=== PATIENT | male | born 1940 | race African-American/Black ===

== ENCOUNTER 2016-12-28 17:42 | Emergency (ER) | payer OTHER ==
[~2016-12-28 17:42] MED LIST: ALPRTAB4 PO; AMLO10TA2 PO; HYDR-3288 PO; HYDR-3583 PO; LABE200T2 PO; METO1TAB43 PO; WALKER/ADULT/FO1 MIS; WHEEMIS3
[2016-12-28 18:51] VITALS: BP 166/76; PULSE 60; RESP 16; TEMP 99; O2SAT 99
--- NOTE | 2016-12-28 18:52 | PD ---
HPI Chief Complaint: Complaint Time Seen by Provider: 18:32 Travel History International Travel<30 days: No Contact w/Intl Traveler<30days: No Traveled to known affect area: No History of Present Illness HPI 49 yo M c/o dysuria, urinary hesitancy, and dribbling gradually increasing over the last few days. pt has hx hesitancy however since R tibia surgery it has been worsening. he reports pain medication has led to constipation. no fever. no back pain/flank pain. no vomiting. no hematuria. no pain at glans or discharge. PFSH Past Medical History Arthritis: Yes Asthma: No Blood Disorders: No Anxiety: Yes Heart Rhythm Problems: No Cancer: No Cardiac Catheterization: Yes Cardiovascular Problems: Yes High Cholesterol: Yes Chemotherapy: No Chest Pain: Yes Congestive Heart Failure: No COPD: No Cerebrovascular Accident: No Diabetes: No Diminished Hearing: Yes Endocrine: Yes Genitourinary: No Headaches: Yes (PT. STATES WHEN BLOOD PRESSURE IS HIGH) Hiatal Hernia: No Hypertension: Yes Immune Disorder: No Kidney Stones: No Musculoskeletal: Yes (RIGHT ANKLE, RIGHT HIP) Neurologic: Yes Psychiatric: No Reproductive: No Respiratory: Yes (HISTORY OF COLLAPSED LUNG MANY YEARS AGO.) Migraines: No Myocardial Infarction: No Radiation Therapy: No Renal Failure: No Seizures: No Sleep Apnea: No Thyroid Disease: No Past Surgical History Abdominal Surgery: No AICD: No Cardiac Surgery: No Ear Surgery: No Endocrine Surgery: No Eye Surgery: No Genitourinary Surgery: No Gynecologic Surgery: No Insulin Pump: No Joint Replacement: Yes (RT. KNEE) Oral Surgery: No Pacemaker: No Thoracic Surgery: Yes (PNEUMOTHORAX WITH CHEST TUBE INSERTION IN 1969) Tonsillectomy: Yes Other Surgery: Yes (PNEUMONTHORAX IN THE 70'S) Social History Alcohol Use: No Tobacco Use: No (quit 25 years ago) Substance Use: No Allergies-Medications (Allergen,Severity, Reaction): Coded Allergies: No Known Allergies (Verified , 12/19/16) Reported Meds & Prescriptions Reported Meds & Active Scripts Active Wheelchair Elevated Leg (Device) 1 Mis Mis Ea .ROUTE DIRECTED Walker/Adult/Folding (Device) 1 Mis Mis Ea .ROUTE DIRECTED [place] (Hydrocodone-Acetaminophen) 7.5-325 mg Tab 1 Tab PO Q4H PRN Reported Metoprolol Succinate ER 24 HR (Metoprolol Succinate) 100 Mg Tab 100 Mg PO DAILY Labetalol (Labetalol HCl) 200 Mg Tab 200 Mg PO BID Hydrocodone-Acetaminophen 10-325 mg Tab 1 Tab PO QID Amlodipine (Amlodipine Besylate) 10 Mg Tab 10 Mg PO DAILY Alprazolam Xr (Alprazolam) 0.5 Mg Tab PO DAILY Review of Systems Except as stated in HPI: all other systems reviewed are Neg General / Constitutional: No: Fever Genitourinary: Positive: Frequency, Hesitancy, Dribbling, No: Hematuria, Incontinence Physical Exam Narrative GENERAL: 76 yo M, WNWD, NAD : Glans normal. No discharge. No testicular pain/mass/tenderness/crepitus. SKIN: Warm and dry. HEAD: Atraumatic. Normocephalic. EYES: Pupils equal and round. No scleral icterus. No injection or drainage. ENT: No nasal bleeding or discharge. Mucous membranes pink and moist. NECK: Trachea midline. No JVD. CARDIOVASCULAR: Regular rate and rhythm. RESPIRATORY: No accessory muscle use. Clear to auscultation. Breath sounds equal bilaterally. GASTROINTESTINAL: Abdomen soft, non-tender, nondistended. Hepatic and splenic margins not palpable. MUSCULOSKELETAL: Extremities without clubbing, cyanosis, or edema. No obvious deformities. NEUROLOGICAL: Awake and alert. No obvious cranial nerve deficits. Motor grossly within normal limits. Five out of 5 muscle strength in the arms and legs. Normal speech. PSYCHIATRIC: Appropriate mood and affect; insight and judgment normal. Data Data Last Documented VS Vital Signs Date Time Temp Pulse Resp B/P (MAP) Pulse Ox O2 Delivery O2 Flow Rate FiO2 12/28/16 18:51 99.0 60 16 166/76 (106) 99 Room Air Orders Orders Urinalysis - C+S If Indicated (12/28/16 18:47) Sodium Chloride 0.9% Flush (Ns Flush) (12/28/16 19:00) Urinary Catheter Insert/Apply (12/28/16 19:49) Ed Discharge Order (12/28/16 19:49) Labs Laboratory Tests Test 12/28/16 19:10 Urine Color LIGHT-YELLOW Urine Turbidity CLEAR Urine pH 7.5 Urine Specific [place] 1.011 Urine Protein NEG mg/dL Urine Glucose (UA) NEG mg/dL Urine Ketones NEG mg/dL Urine Occult Blood NEG Urine Nitrite NEG Urine Bilirubin NEG Urine Urobilinogen LESS THAN 2.0 MG/DL Urine Leukocyte Esterase NEG Urine RBC LESS THAN 1 /hpf Urine WBC LESS THAN 1 /hpf Urine Squamous Epithelial Cells <1 /hpf Microscopic Urinalysis Comment CULT NOT INDICATED MDM Medical Decision Making Medical Screen Exam Complete: Yes Emergency Medical Condition: Yes Medical Record Reviewed: Yes Differential Diagnosis urinary retention, BPH, side effects from opioid analgesia, UTI Narrative Course UA: no UTI pt likely has mild preexistant BPH and now with opioids has urinary retention. martinez placed and approx 500cc urine collected. martinez to leg bag. follow up with urology in 3 days. Diagnosis Primary Impression: Urinary retention Referrals: Hema Harris MD [address] HARRIS IS A UROLOGIST. PLEASE FOLLOW UP WITH HIM IN THREE DAYS TO HAVE THE MARTINEZ CATHETER REMOVED. Additional Instructions: You have a choice when it comes to health care, and we are glad that you chose [facility]. Hopefully, we have met your expectations on today's visit. You are welcome to return to [facility] at any time, as we are committed to meeting the health care needs of our community. Med/Other Pt SpecificInfo: No Change to Meds Disposition: 01 DISCHARGE HOME Condition: Kobi Díaz MD Dec 28, 2016 18:52
[2016-12-28] MEDS ORDERED: SODIUM CHLORIDE 0.9% FLUSH 10 ML FLUSH IVF PRN (19:00)
[2016-12-28 19:31] LABS: BLOOD, URINE NEG (NEG); GLUCOSE,URINE NEG (NEG); KETONE, URINE NEG (NEG); NITRITE,URINE NEG (NEG); PH, URINE 7.5 (5.0-8.5); SQUAMOUS EPITHELIAL CELL URINE <1 /hpf (0-5); URINE COLOR LIGHT-YELLOW (YELLW/STRAW)
[2016-12-28 19:47] LABS: COMMENT (UR) CULT NOT INDICATED; CULTURE IF INDICATED CULT NOT INDICATED
[2016-12-28] MEDS ORDERED: ACETAMINOPHEN/HYDROcodone 325 MG/10 MG TAB PO ONE (20:45)
[2016-12-28 20:50] VITALS: BP 189/86; PULSE 75; RESP 20
[2016-12-28 23:41] VITALS: BP 164/85; PULSE 72; RESP 20
[2016-12-29] MEDS ORDERED: ACETAMINOPHEN/HYDROcodone 325 MG/10 MG TAB PO ONE (02:15)
== END 2016-12-29 07:25 | disposition home or self-care (01) ==
LOC: NEPD 17:42
DX: R33.9 Retention of urine, unspecified (principal); M19.90 Unspecified osteoarthritis, unspecified site; I10 Essential (primary) hypertension; E78.00 Pure hypercholesterolemia, unspecified; F41.9 Anxiety disorder, unspecified; Z96.651 Presence of right artificial knee joint
CPT/HCPCS: 51702; 81001

== ENCOUNTER 2017-02-04 15:00 | Emergency (ER) | payer OTHER ==
[~2017-02-04 15:00] MED LIST changes: -ALPRTAB4 PO; -HYDR-3288 PO
[2017-02-04 15:13] VITALS: BP 180/82; PULSE 65; RESP 16; TEMP 98.9; O2SAT 100
--- NOTE | 2017-02-04 15:42 | PD ---
HPI Chief Complaint: Abnormal Results Time Seen by Provider: 15:21 Travel History International Travel<30 days: No Contact w/Intl Traveler<30days: No Traveled to known affect area: No History of Present Illness HPI 76 year old male patient presents to the emergency department for evaluation after his assisted living facility transferred him via EMS due to an abnormal abdominal x-ray. Patient had not had a bowel movement in 3 days and they took an x-ray and it showed partial ileus with constipation. Patient is post status right ankle fracture repair with external fixator. Patient is alert and answering questions appropriately. Per the senior living paperwork the patient has been having intermittent confusion lately. The patient states the reason why he is having intermittent confusion is related to the morphine he is taking for ankle pain postop. The patient denies any nausea, vomiting, abdominal pain. Patient denies any fever, chills, malaise. Patient denies any chest pain , shortness breath, lightheadedness. The patient states he is unable to have a bowel movement in the last was 3 days ago. PFSH Past Medical History Arthritis: Yes Asthma: No Blood Disorders: No Anxiety: Yes Heart Rhythm Problems: No Cancer: No Cardiac Catheterization: Yes Cardiovascular Problems: Yes High Cholesterol: Yes Chemotherapy: No Chest Pain: Yes Congestive Heart Failure: No COPD: No Cerebrovascular Accident: No Diabetes: No Diminished Hearing: Yes Endocrine: Yes Genitourinary: No Headaches: Yes (PT. STATES WHEN BLOOD PRESSURE IS HIGH) Hiatal Hernia: No Hypertension: Yes Immune Disorder: No Kidney Stones: No Musculoskeletal: Yes (RIGHT ANKLE, RIGHT HIP) Neurologic: Yes Psychiatric: No Reproductive: No Respiratory: Yes (HISTORY OF COLLAPSED LUNG MANY YEARS AGO.) Migraines: No Myocardial Infarction: No Radiation Therapy: No Renal Failure: No Seizures: No Sleep Apnea: No Thyroid Disease: No Past Surgical History Abdominal Surgery: No AICD: No Cardiac Surgery: No Ear Surgery: No Endocrine Surgery: No Eye Surgery: No Genitourinary Surgery: No Gynecologic Surgery: No Insulin Pump: No Joint Replacement: Yes (RT. KNEE) Oral Surgery: No Pacemaker: No Thoracic Surgery: Yes (PNEUMOTHORAX WITH CHEST TUBE INSERTION IN 1969) Tonsillectomy: Yes Other Surgery: Yes (PNEUMONTHORAX IN THE 70'S) Social History Alcohol Use: No Tobacco Use: No (quit 25 years ago) Substance Use: No Allergies-Medications (Allergen,Severity, Reaction): Coded Allergies: No Known Allergies (Verified , 12/19/16) Reported Meds & Prescriptions Reported Meds & Active Scripts Active Reported Multiple Vitamin 1 Tab 1 Tab PO DAILY Morphine ER (Morphine Sulfate) 15 Mg Tab 15 Mg PO Q8H Milk of Lucas Liq (Magnesium Hydroxide) 400 Mg/5 Ml Susp 30 Ml PO HS PRN Lotrisone Topical (Betamethasone/Clotrimazole) 1-0.05% Cream 1 Applic TOPICAL TID 10 Days Apply to rash on buttocks,thigh and groin Calcium Polycarbophil 625 Mg Tab 625 Mg PO BID Enema Disposable (Sodium Phosphates) 19 Gram-7 Gram/118 Ml Daily 1 Applic RECTAL DIRECTED PRN Dulcolax Supp (Bisacodyl) 10 Mg Supp 10 Mg RECTAL DAILY PRN Doxycycline (Doxycycline (Monohydrate)) 100 Mg Cap 100 Mg PO BID B12 (Cyanocobalamin) 1,000 Mcg Tab 1,000 Mcg PO DAILY Citroma Liq (Magnesium Citrate) 300 Ml Liq 296 Ml PO IN AM PRN Bactrim DS (Sulfamethoxazole-Trimethoprim) 800-160 Mg Tab 1 Tab PO BID UNTIL 02/13/2017 Tylenol (Acetaminophen) 325 Mg Tab 650 Mg PO Q4H PRN Metoprolol Succinate ER 24 HR (Metoprolol Succinate) 100 Mg Tab 100 Mg PO DAILY Labetalol (Labetalol HCl) 200 Mg Tab 200 Mg PO BID Hydrocodone-Acetaminophen 10-325 mg Tab 1 Tab PO Q6HR PRN Amlodipine (Amlodipine Besylate) 10 Mg Tab 10 Mg PO DAILY Review of Systems Except as stated in HPI: all other systems reviewed are Neg Physical Exam Narrative GENERAL: Well-nourished, well-developed 76-year-old male patient in no acute distress. Nontoxic appearing. SKIN: Focused skin assessment warm/dry. HEAD: Normocephalic. Atraumatic. EYES: No scleral icterus. No injection or drainage. NECK: Supple, trachea midline. No JVD or lymphadenopathy. CARDIOVASCULAR: Regular rate and rhythm without murmurs, gallops, or rubs. RESPIRATORY: Breath sounds equal bilaterally. No accessory muscle use. GASTROINTESTINAL: Abdomen firm, non-tender, nondistended. MUSCULOSKELETAL: No cyanosis, or edema. BACK: Nontender without obvious deformity. No CVA tenderness. Data Data Last Documented VS Vital Signs Date Time Temp Pulse Resp B/P (MAP) Pulse Ox O2 Delivery O2 Flow Rate FiO2 02/04/17 15:13 98.9 65 16 180/82 (114) 100 Orders Orders Magnesium Citrate Liq (Citroma Liq) (02/04/17 16:00) Complete Blood Count With Diff (02/04/17 15:53) Basic Metabolic Panel (Bmp) (02/04/17 15:53) Iv Access Insert/Monitor (02/04/17 15:53) Sodium Chlor 0.9% 1000 Ml Inj (Ns 1000 M (02/04/17 16:00) Labs Laboratory Tests Test 02/04/17 16:10 White Blood Count 6.3 TH/MM3 Red Blood Count 2.84 MIL/MM3 Hemoglobin 9.2 GM/DL Hematocrit 27.7 % Mean Corpuscular Volume 97.5 FL Mean Corpuscular Hemoglobin 32.5 PG Mean Corpuscular Hemoglobin Concent 33.3 % Red Cell Distribution Width 13.3 % Platelet Count 304 TH/MM3 Mean Platelet Volume 6.2 FL Neutrophils (%) (Auto) 53.9 % Lymphocytes (%) (Auto) 29.9 % Monocytes (%) (Auto) 7.6 % Eosinophils (%) (Auto) 7.9 % Basophils (%) (Auto) 0.7 % Neutrophils # (Auto) 3.4 TH/MM3 Lymphocytes # (Auto) 1.9 TH/MM3 Monocytes # (Auto) 0.5 TH/MM3 Eosinophils # (Auto) 0.5 TH/MM3 Basophils # (Auto) 0.0 TH/MM3 CBC Comment DIFF FINAL Differential Comment Blood Urea Nitrogen 21 MG/DL Creatinine 1.62 MG/DL Random Glucose 77 MG/DL Calcium Level 8.7 MG/DL Sodium Level 135 MEQ/L Potassium Level 4.5 MEQ/L Chloride Level 107 MEQ/L Carbon Dioxide Level 19.1 MEQ/L Anion Gap 9 MEQ/L Estimat Glomerular Filtration Rate 51 ML/MIN MDM Medical Decision Making Medical Screen Exam Complete: Yes Emergency Medical Condition: Yes Differential Diagnosis Differential diagnoses include but not limited to constipation, ileus, decreased motility secondary to narcotics, obstruction Narrative Course 76-year-old male patient presents emergency department after being sent by his retirement facility due to abnormal abdominal x-ray and intermittent confusion. Patient denies any nausea, vomiting, abdominal pain. Patient states he had a bowel movement 3 days ago. Patient alert and oriented and answering questions appropriately. Patient has PIV in place from retirement facility. Rectal exam performed at bedside and no hardened stool was noted to be in the rectal vault. CBC and CMP ordered and pending. A liter normal saline IV bolus ordered. Magnesium citrate 300 mL's ordered for constipation. CBC shows decrease HBG at 9.2. Patient asymptomatic. Patient will be given a prescription for miralax and discharged back to his retirement facility. Laboratory Tests Test 02/04/17 16:10 White Blood Count 6.3 TH/MM3 Red Blood Count 2.84 MIL/MM3 Hemoglobin 9.2 GM/DL Hematocrit 27.7 % Mean Corpuscular Volume 97.5 FL Mean Corpuscular Hemoglobin 32.5 PG Mean Corpuscular Hemoglobin Concent 33.3 % Red Cell Distribution Width 13.3 % Platelet Count 304 TH/MM3 Mean Platelet Volume 6.2 FL Neutrophils (%) (Auto) 53.9 % Lymphocytes (%) (Auto) 29.9 % Monocytes (%) (Auto) 7.6 % Eosinophils (%) (Auto) 7.9 % Basophils (%) (Auto) 0.7 % Neutrophils # (Auto) 3.4 TH/MM3 Lymphocytes # (Auto) 1.9 TH/MM3 Monocytes # (Auto) 0.5 TH/MM3 Eosinophils # (Auto) 0.5 TH/MM3 Basophils # (Auto) 0.0 TH/MM3 CBC Comment DIFF FINAL Differential Comment Blood Urea Nitrogen 21 MG/DL Creatinine 1.62 MG/DL Random Glucose 77 MG/DL Calcium Level 8.7 MG/DL Sodium Level 135 MEQ/L Potassium Level 4.5 MEQ/L Chloride Level 107 MEQ/L Carbon Dioxide Level 19.1 MEQ/L Anion Gap 9 MEQ/L Estimat Glomerular Filtration Rate 51 ML/MIN Diagnosis Primary Impression: Constipation Qualified Codes: K59.00 - Constipation, unspecified Referrals: Primary Care Physician Patient Instructions: Constipation (ED), General Instructions Additional Instructions: Please return to emergency department if your symptoms return or worsen. Follow up with your primary care provider. Take medications as prescribed. Stay hydrated, Med/Other Pt SpecificInfo: Prescription(s) given Scripts Polyethylene Glycol 3350 Powder (Miralax Powder) 17 Gm Powd 17 GM PO DAILY for Constipation, #1 CAN 0 Refills Mix and dissolve one measuring cap-ful (17 grams) in water or juice. Prov: Shayna Espino 02/04/17 Disposition: 01 DISCHARGE HOME Condition: Stable Shayna Espino Feb 04, 2017 15:42
[2017-02-04] MEDS ORDERED: SODIUM CHLOR 0.9% 1000 ML INJ 1,000 ML IV ONE (16:00)
[2017-02-04] MEDS ORDERED: MAGNESIUM CITRATE SOLN 300 ML BTL PO ONE (16:00)
[2017-02-04] MEDS ORDERED: MORP1TAB24 PO (16:05)
[2017-02-04] MEDS ORDERED: MILKSUS PO (16:05)
[2017-02-04] MEDS ORDERED: DOXY1CAP91 PO (16:05)
[2017-02-04] MEDS ORDERED: ENEMENE5 RECTAL (16:05)
[2017-02-04] MEDS ORDERED: LOTR15T TOPICAL (16:05)
[2017-02-04] MEDS ORDERED: CITRSOL4 PO (16:05)
[2017-02-04] MEDS ORDERED: BACT800T5 PO (16:05)
[2017-02-04] MEDS ORDERED: CYAN1TAB24 PO (16:05)
[2017-02-04] MEDS ORDERED: TYLE325T PO (16:05)
[2017-02-04] MEDS ORDERED: DULC10SU3 RECTAL (16:05)
[2017-02-04] MEDS ORDERED: MULTTAB67 PO (16:05)
[2017-02-04] MEDS ORDERED: CALC625T13 PO (16:05)
[2017-02-04 16:50] LABS: AUTOMATED NEUTROPHIL # 3.4 TH/MM3 (1.8-7.7); BASOPHIL % 0.7 % (0.0-2.0); EOSINOPHIL # 0.5 TH/MM3 (0-0.4); EOSINOPHIL % 7.9 % (0.0-4.0); HEMATOCRIT 27.7 % (39.0-51.0); HEMO FLAGS DIFF FINAL; LYMPH % 29.9 % (9.0-44.0); LYMPHOCYTE # 1.9 TH/MM3 (1.0-4.8); MEAN CELL VOLUME 97.5 FL (80.0-100.0); MEAN CORPUSCULAR HEMOGLOBIN 32.5 PG (27.0-34.0); MEAN CORPUSCULAR HGB CONC 33.3 % (32.0-36.0); MONO % 7.6 % (0.0-8.0); NEUT % 53.9 % (16.0-70.0); PLATELET COUNT 304 TH/MM3 (150-450); RED BLOOD COUNT 2.84 MIL/MM3 (4.50-5.90); RED CELL DISTRIBUTION WIDTH 13.3 % (11.6-17.2); WHITE BLOOD COUNT 6.3 TH/MM3 (4.0-11.0)
[2017-02-04 17:05] LABS: BICARBONATE 19.1 MEQ/L (21.0-32.0); POTASSIUM 4.5 MEQ/L (3.5-5.1)
[2017-02-04] MEDS ORDERED: MIRA3350 PO (17:29)
--- NOTE | 2017-02-04 20:13 | PD ---
Data Data Last Documented VS Vital Signs Date Time Temp Pulse Resp B/P (MAP) Pulse Ox O2 Delivery O2 Flow Rate FiO2 02/04/17 15:13 98.9 65 16 180/82 (114) 100 Orders Orders Magnesium Citrate Liq (Citroma Liq) (02/04/17 16:00) Complete Blood Count With Diff (02/04/17 15:53) Basic Metabolic Panel (Bmp) (02/04/17 15:53) Iv Access Insert/Monitor (02/04/17 15:53) Sodium Chlor 0.9% 1000 Ml Inj (Ns 1000 M (02/04/17 16:00) Ed Discharge Order (02/04/17 17:34) Labs Laboratory Tests Test 02/04/17 16:10 White Blood Count 6.3 TH/MM3 Red Blood Count 2.84 MIL/MM3 Hemoglobin 9.2 GM/DL Hematocrit 27.7 % Mean Corpuscular Volume 97.5 FL Mean Corpuscular Hemoglobin 32.5 PG Mean Corpuscular Hemoglobin Concent 33.3 % Red Cell Distribution Width 13.3 % Platelet Count 304 TH/MM3 Mean Platelet Volume 6.2 FL Neutrophils (%) (Auto) 53.9 % Lymphocytes (%) (Auto) 29.9 % Monocytes (%) (Auto) 7.6 % Eosinophils (%) (Auto) 7.9 % Basophils (%) (Auto) 0.7 % Neutrophils # (Auto) 3.4 TH/MM3 Lymphocytes # (Auto) 1.9 TH/MM3 Monocytes # (Auto) 0.5 TH/MM3 Eosinophils # (Auto) 0.5 TH/MM3 Basophils # (Auto) 0.0 TH/MM3 CBC Comment DIFF FINAL Differential Comment Blood Urea Nitrogen 21 MG/DL Creatinine 1.62 MG/DL Random Glucose 77 MG/DL Calcium Level 8.7 MG/DL Sodium Level 135 MEQ/L Potassium Level 4.5 MEQ/L Chloride Level 107 MEQ/L Carbon Dioxide Level 19.1 MEQ/L Anion Gap 9 MEQ/L Estimat Glomerular Filtration Rate 51 ML/MIN MDM Supervised Visit with RAMIREZ: Yes Narrative Course The history, exam, and medical decision-making in the associated mid-level provider note were completed with my assistance. I reviewed and agree with the findings presented. I attest that I had a [id number] encounter with the patient on the same day, and personally performed and documented my assessment and findings in the medical record. *My assessment and Findings: 76 old man with an abnormal x-ray, likely constipated, no evidence of obstruction. Benign exam. They state he was eating well and had some confusion. Is completely lucid. States that he felt like he may be confused with morphine medicines. Otherwise looks great. Does endorse some decreased appetite. Rectal exam showed no obstipation. Recommend treatment for constipation, supportive treatment. Diagnosis Primary Impression: Constipation Referrals: Primary Care Physician Patient Instructions: General Instructions, Constipation (ED) Departure Forms: Tests/Procedures Additional Instruction: Please return to emergency department if your symptoms return or worsen. Follow up with your primary care provider. Take medications as prescribed. Stay hydrated, Scripts Polyethylene Glycol 3350 Powder (Miralax Powder) 17 Gm Powd 17 GM PO DAILY for Constipation, #1 CAN 0 Refills Mix and dissolve one measuring cap-ful (17 grams) in water or juice. Prov: Shayna Espino [employer] 02/04/17 Disposition: 01 DISCHARGE HOME Condition: Stable Hiren Vora MD Feb 04, 2017 20:13
== END 2017-02-04 19:53 | disposition home or self-care (01) ==
LOC: NEPC 15:00
DX: K59.00 Constipation, unspecified (principal); M19.90 Unspecified osteoarthritis, unspecified site; F41.9 Anxiety disorder, unspecified; E78.00 Pure hypercholesterolemia, unspecified; I10 Essential (primary) hypertension; Z79.899 Other long term (current) drug therapy
CPT/HCPCS: 80048; 85025; 96360; 96361; 99284; J7030

== ENCOUNTER → 2017-03-05 | Day surgery (SDC) | payer OTHER ==
[~2017-03-05] VITALS: Ht 190.5 cm; Wt 90.5 kg
[~2017-03-05] MED LIST changes: +*morphine SULFATE 8 MG/ML PERIprocedure ONLY ONE; +ACETAMINOPHEN/HYDROcodone 325 MG/5 MG TAB PO PRN; +CHLORHEXIDINE GLUCONATE 2 % 1 PACK (2 CLOTHS) TOPICAL PRN; +CHLORHEXIDINE GLUCONATE 4% SOLN 120 ML BTL TOPICAL SCH; +DEXAMETHASONE SOD PHOS 4 MG/ML VIAL IV ONE; +DIMETHICONE/OXYBENZONE/PADMIATE LIP BALM 4.25 GM TOPICAL ONE; +DO NOT ADM ANY ANTICOAGULANT DRUGS PRN; +DOXY1CAP91 PO; +HYDROmorphone HCL PF 1 MG/ML VIAL ONE; +LACTATED RINGER'S 1000 ML IV PRN; +LIDOCAINE HCL 1% PF 5 ML SYRINGE OTHER ONE; +METOPROLOL TARTRATE 25 MG TAB PO PRN; +MIRA3350 PO; +NORC5TAB PO; +ONDANSETRON HCL 4 MG/2 ML VIAL IV ONE; +ONDANSETRON HCL 4 MG/2 ML VIAL IV PUSH PRN; +PHENYLEPH/NS 1000 MCG/10 ML SYR IV ONE; +POVIDONE IODINE 5% (ANTISEPSIS KIT) 4 APPLICATIONS EACH NARE PRN; +PROPOFOL 200 MG/20 ML AMP IV ONE; +SODIUM CHLORID 0.9% 500 ML IV PRN; +SODIUM CHLORIDE 0.9% FLUSH 10 ML FLUSH IV FLUSH SCH; +VANCOMYCIN 1000 MG/NS 250 ML (for <70 kg) IV SCH; -WALKER/ADULT/FO1 MIS; -WHEEMIS3; +ceFAZolin 2 GM PREMIX 50 ML IV SCH; +ePHEDrine/NS 25 MG/5 ML SYRINGE IV ONE
--- NOTE | 2017-03-05 07:36 | PD.OP ---
cc: Ayush Cadena MD Operative Report Date of Surgery: Mar 05, 2017 Preoperative Diagnosis: Healing right ankle fractures Postoperative Diagnosis: Procedure: Removal of external fixation right ankle, manipulation of right ankle under anesthesia Anesthesia: Gen. Surgeon: Ayush Cadena Concrete Layer(s): Nino Jiang PA-C Operation and Findings: Sukumar is well-known to me from previous right distal tibia and fibula fractures treated with open reduction and external fixation. Informed consent was obtained today for surgery. Operative site was marked. He is brought to operating room. He was given IV antibiotics. Timeout procedure was performed. He was given IV sedation and general anesthesia. Procedure began with removal external fixation. Clamps were loosened. Clamps and bars were now removed from the pins. The pins were now removed from the tibia and calcaneus. Next attention was turned to manipulation of the ankle. The ankle was manipulated. The ankle was very stiff. Fluoroscopy was used to confirm that fracture was healing. Patient does have impaction of the distal tibia. Patient also has mild widening of the medial clear space. The ankle was manipulated to achieve approximately 10 of dorsiflexion and 25 plantar flexion. Patient was now placed into a well molded well-padded splint. His transferred to recovery room stable condition. Ayush Cadena MD Mar 05, 2017 07:36
--- NOTE | 2017-03-05 08:11 | RADRPT ---
EXAM DATE/TIME: 03/05/2017 07:25 [facility] COMPARISON: ANKLE RIGHT LIMITED (AP&LAT), December 19, 2016, 9:43. INDICATIONS : Manipulation of right ankle under fluoro. Removal of ex fix. MEDICAL HISTORY : Unobtainable. SURGICAL HISTORY : Unobtainable. ENCOUNTER: Subsequent ACUITY: 2 months PAIN SCORE: Non-responsive. LOCATION: Right ankle. FINDINGS: 2 views in the operating room were obtained. The pin previously crossing the subtalar and tibiotalar joints has been removed. There is an ill-defined subchondral sclerosis in the lateral aspect of the t ibial plafond, not perceptibly changed. There is a partly healed fracture of the distal fibula with m ild lateral angulation deformity. I don't see an acute fracture. Bones are diffusely osteopenic. CONCLUSION: Hindfoot/ankle pin removal. Osteopenia, healing distal fibula fracture and indeterminate distal tibia l sclerosis again noted. Familia Lyons MD on March 05, 2017 at 8:07 Board Certified Radiologist. This report was verified electronically.
[2017-03-05 09:35] VITALS: BP 134/84; PULSE 90; RESP 18; TEMP 97.4; O2SAT 100
== END | disposition home or self-care (01) ==
LOC: HSDC 05:24
PROVIDERS: ATTEND Orthopaedic Surgery Orthopaedic Trauma
DX: S82.831D Other fracture of upper and lower end of right fibula, subsequent encounter for closed fracture with routine healing (principal); I10 Essential (primary) hypertension
CPT/HCPCS: 01462; 20694; 73600; 76000; J1100; J1170; J2270; J2370; J2405; J3010; J3370; J7050; J7120